=== PATIENT | female | born 1970 | race Caucasian/White ===

== ENCOUNTER → 2018-07-20 21:42 | Outpatient (CLI) | payer OTHER, SELFPAY ==
[2018-07-20 22:14] LABS: Thyroid Stim Hormone (TSH) 2.21 uIU/mL (0.358-3.74)
== END ==
PROVIDERS: Visit Provider Nurse Practitioner
DX: E03.8 Other specified hypothyroidism (principal)
CPT/HCPCS: 84443

== ENCOUNTER → 2020-09-11 21:42 | Outpatient (CLI) | payer OTHER, SELFPAY ==
[2020-09-11 16:19] VITALS: BMI 37.7
[2020-09-11 21:52] LABS: Absolute Lymphocyte Count 1.67 X10^3/uL (0.83-4.51); Absolute Neutrophil Count 5.5 X10^3/uL (2.0-7.7); Basophil# 0.03 X10^3/uL; Basophil% 0.4 % (0-1); Eosinophil# 0.21 X10^3/uL; Eosinophils% 2.6 % (0-5); Hematocrit 41.8 % (37-47); Hemoglobin 14.1 g/dL (12.0-15.0); Lymphocyte # 1.67 X10^3/ul (4.0); Lymphocyte % 20.7 % (19-41); Mean Corp Hgb Conc 33.7 g/dL (32-36); Mean Corpuscular Hgb 30.7 pg (27.0-32.0); Mean Corpuscular Volume 91.1 fL (81-99); Mean Platelet Vol. 11.4 fl (6.2-12.0); Monocyte# 0.63 X10^3/uL; Monocyte% 7.8 % (0-10); NRBC Flagged by Analyzer 0 % (0-5); Neutrophil # 5.51 X10^3/uL (2.7-7.7); Neutrophil % 68.4 % (47-70); Platelet Count 273 K/mm3 (150-450); RBC Distribution Width CV 11.8 % (11.6-14.6); RBC Distribution Width SD 39.2 fl (35.1-43.9); Red Blood Count 4.59 M/mm3 (4.2-5.4); White Blood Count 8.1 K/mm3 (4.4-11.0)
[2020-09-11 22:07] LABS: AST(SGOT) 19 U/L (15-37); Alanine Aminotransfer ALT/SGPT 32 U/L (13-56); Albumin, Serum 3.5 g/dL (3.2-5.0); Alkaline Phosphatase 60 U/L (45-117); Anion Gap 5 (5-15); BUN 11 mg/dL (7-18); BUN/Creat Ratio 13.5 RATIO (10-20); Calcium,Total 9.2 mg/dL (8.5-10.1); Chloride 106 mmol/L (98-107); Cholesterol 205 mg/dL (200); Creatinine, Serum 0.82 mg/dL (0.55-1.02); EST Glomerular Filtration Rate 78 mL/min (>60); Est Glom Filt Rate - Afr Amer 95 mL/min (>60); Globulin 3.4 g/dL (2.2-4.2); Glucose 131 mg/dL (74-106); High Density Lipoprotein 50 mg/dL; Potassium 3.6 mmol/L (3.5-5.1); Protein, Total 6.9 g/dL (6.4-8.2); Sodium Level 138 mmol/L (136-145); Thyroid Stim Hormone (TSH) 1.65 uIU/mL (0.358-3.74); Triglycerides 163 mg/dL; Very Low Density Lipoprotein 33 mg/dL (5-40)
== END ==
PROVIDERS: Referring Provider Nurse Practitioner; Visit Provider Nurse Practitioner
DX: Z00.00 Encounter for general adult medical examination without abnormal findings (principal)
CPT/HCPCS: 80053; 80061; 84443; 85025

== ENCOUNTER → 2020-12-03 09:28 | Outpatient (CLI) | payer OTHER, SELFPAY ==
[2020-09-11 16:19] VITALS: BMI 37.7
--- NOTE | 2020-12-03 09:31 | BI_ITS ---
MAMMOGRAPHY - BILATERAL SCREENING REASON FOR EXAM: Female, 50 years old. Routine annual screening examination. PERTINENT HISTORY: Non-contributory. TECHNIQUE: Digital bilateral breast roman (3D mammographic acquisition) in the CC and MLO projections. 2-D mediolateral oblique (MLO) and craniocaudad (CC) views of both breasts were obtained. CAD: Full Field Digital Mammography with Computer Added Detection was performed. COMPARISON: Comparison is made with prior outside examination dated 07/12/2019. FINDINGS: Breast Composition: There are scattered areas of fibroglandular density. There are no dominant masses or suspicious calcifications. Stable benign-appearing bilateral axillary lymph nodes. No other significant abnormalities are identified. There has been no significant change since the prior study. BI/SCRN MAMM (CAD)W/ROMAN BILAT IMPRESSION: Stable bilateral screening mammogram. Yearly follow-up mammogram recommended. (A) ASSESSMENT CATEGORY: BIRADS Category 2: Benign. A letter regarding these results will be sent to the patient by the facility within 30 days. Approximately 10% of breast cancers are not detected by mammography. A normal mammogram should not delay biopsy of a clinically suspicious abnormality. [id number] Electronically Signed: Vic Ramirez, at 10:28 EST , Service support ,
== END ==
PROVIDERS: PCP Nurse Practitioner; Referring Provider Nurse Practitioner; Visit Provider Nurse Practitioner
DX: Z12.31 Encounter for screening mammogram for malignant neoplasm of breast (principal)
CPT/HCPCS: 77063; 77067

== ENCOUNTER → 2021-10-18 21:39 | Outpatient (CLI) | payer OTHER, SELFPAY ==
[2021-10-18 22:22] LABS: Absolute Lymphocyte Count 2.08 X10^3/uL (0.83-4.51); Absolute Neutrophil Count 5.8 X10^3/uL (2.0-7.7); Basophil# 0.03 X10^3/uL; Basophil% 0.3 % (0-1); Eosinophil# 0.17 X10^3/uL; Eosinophils% 1.9 % (0-5); Hematocrit 41.1 % (37-47); Hemoglobin 14.3 g/dL (12.0-15.0); Lymphocyte # 2.08 X10^3/ul (0.83-4.51); Lymphocyte % 23.8 % (19-41); Mean Corp Hgb Conc 34.8 g/dL (32-36); Mean Corpuscular Hgb 31.6 pg (27.0-32.0); Mean Corpuscular Volume 90.7 fL (81-99); Mean Platelet Vol. 11.5 fl (6.2-12.0); Monocyte# 0.61 X10^3/uL; NRBC Flagged by Analyzer 0 % (0-5); Neutrophil # 5.83 X10^3/uL (2.7-7.7); Neutrophil % 66.8 % (47-70); Platelet Count 315 K/mm3 (150-450); RBC Distribution Width CV 11.9 % (11.6-14.6); RBC Distribution Width SD 39.9 fl (35.1-43.9); Red Blood Count 4.53 M/mm3 (4.2-5.4); White Blood Count 8.7 K/mm3 (4.4-11.0)
[2021-10-18 22:39] LABS: AST(SGOT) 31 U/L (15-37); Alanine Aminotransfer ALT/SGPT 55 U/L (13-56); Albumin, Serum 3.7 g/dL (3.2-5.0); Alkaline Phosphatase 66 U/L (45-117); Anion Gap 7 (5-15); BUN 15 mg/dL (7-18); BUN/Creat Ratio 17.5 RATIO (10-20); Calcium,Total 9.6 mg/dL (8.5-10.1); Chloride 98 mmol/L (98-107); Cholesterol 203 mg/dL (200); Creatinine, Serum 0.86 mg/dL (0.55-1.02); EST Glomerular Filtration Rate 74 mL/min (>60); Est Glom Filt Rate - Afr Amer 89 mL/min (>60); Globulin 3.7 g/dL (2.2-4.2); Glucose 145 mg/dL (74-106); High Density Lipoprotein 34 mg/dL; Potassium 2.9 mmol/L (3.5-5.1); Protein, Total 7.4 g/dL (6.4-8.2); Sodium Level 134 mmol/L (136-145); Thyroid Stim Hormone (TSH) 2.53 uIU/mL (0.358-3.74); Triglycerides 285 mg/dL; Very Low Density Lipoprotein 57 mg/dL (5-40)
== END ==
PROVIDERS: PCP Nurse Practitioner; Visit Provider Nurse Practitioner
DX: I10 Essential (primary) hypertension (principal); E03.9 Hypothyroidism, unspecified
CPT/HCPCS: 80053; 80061; 84443; 85025

== ENCOUNTER 2022-01-10 21:55 | Outpatient (CLI) | payer OTHER, SELFPAY ==
[2022-01-10 22:28] LABS: AST(SGOT) 28 U/L (15-37); Alanine Aminotransfer ALT/SGPT 52 U/L (13-56); Albumin, Serum 3.8 g/dL (3.2-5.0); Alkaline Phosphatase 67 U/L (45-117); Anion Gap 4 (5-15); BUN 13 mg/dL (7-18); BUN/Creat Ratio 14.7 RATIO (10-20); Calcium,Total 9.3 mg/dL (8.5-10.1); Chloride 103 mmol/L (98-107); Creatinine, Serum 0.89 mg/dL (0.55-1.02); EST Glomerular Filtration Rate 71 mL/min (>60); Est Glom Filt Rate - Afr Amer 86 mL/min (>60); Globulin 3.7 g/dL (2.2-4.2); Glucose 107 mg/dL (74-106); Potassium 4.4 mmol/L (3.5-5.1); Protein, Total 7.5 g/dL (6.4-8.2); Sodium Level 135 mmol/L (136-145)
[2022-01-10 22:56] LABS: Hemoglobin A1c 5.6 % (3.8-5.6)
== END 2022-01-10 23:59 | disposition home or self-care (01) ==
PROVIDERS: PCP Nurse Practitioner; Referring Provider Nurse Practitioner; Visit Provider Nurse Practitioner
DX: R73.9 Hyperglycemia, unspecified (principal); E87.6 Hypokalemia
CPT/HCPCS: 80053; 83036

== ENCOUNTER 2022-06-11 15:09 | Emergency (ER) | payer OTHER, SELFPAY ==
[2022-06-11 15:10] VITALS: BP 142/102; PULSE 84; RESP 16; TEMP 36.1; O2SAT 98; BMI 37.5
[2022-06-11 16:13] VITALS: BP 119/86; BP 136/89; BP 146/91; PULSE 78; PULSE 80; PULSE 88
--- NOTE | 2022-06-11 16:13 | CT_ITS ---
EXAM: CT MAXILLOFACIAL WITHOUT INTRAVENOUS CONTRAST CLINICAL INDICATION: pain, vertigo Technologist Notes REPORTS 3 WEEKS POST COVID. CONTINUES TO HAE DIZZINESS AND Tquot;YEASTTquot; ON TONGUE AND SKIN. DONE WITH ANTIBIOTIC. TECHNIQUE: Helically acquired images were obtained of the face without intravenous contrast. This CT exam was performed using one or more of the following dose reduction techniques: automated exposure control, adjustment of the mA and/or kV according to patient size, and/or use of iterative reconstruction technique. This report was created using [employer] report [employer] technology. RADIATION DOSE: CTDIvol = 29.38 mGy, DLP = 606.22 mGy-cm COMPARISON: None. FINDINGS: BONES/JOINTS: Unremarkable. No displaced fracture. No discrete lytic or blastic abnormalities. SOFT TISSUES: Unremarkable. No focal subcutaneous swelling. No discrete fluid collections. ORBITS: Unremarkable. Both globes are unremarkable. Extraocular muscles are normal. Retrobulbar fat appears unremarkable. SINUSES: Unremarkable as visualized. Clear. MASTOID AIR CELLS: Unremarkable as visualized. Clear. DENTAL: No acute findings. No periodontal osseous erosion. CT/Sinus/Facial Bone IMPRESSION: Negative CT facial bones without intravenous contrast. Electronically Signed: Mario Howell MD at 16:48 EDT ,
--- NOTE | 2022-06-11 16:13 | EX.ED.DYSGE1 ---
HPI History of Present Illness Chief Complaint: Dizziness Informant: patient Onset/Context/Timing Onset: Weeks (2) Context: Gradual Onset Timing: Intermittent Quality: swirling in my head Location: head Current Severity: Mild Maximum Severity: Severe Worsened by: certain positions, standing or sitting at times Relieved by: lying down Narrative Narrative: Patient presents with multiple complaints. She states she had COVID about 3 weeks ago, the next week she was still feeling poorly and still tested positive, called her doctor because she was developing right ear and sinus discomfort that she is very vague in describing, she states it may be a little bit there right now I do not know and provides this answer for a lot of my questions about her symptoms, she still has a little bit of a cough but no dyspnea or chest pain or fevers/chills, she is feeling dizzy that she states feels faint but not like she would pass out if he got worse, and oftentimes when she feels this way if she lies down or remains still she ends up feeling better. Sometimes lying in bed she gets the symptoms and when she rolls over into a certain position and feels better and she can rest. She is not having tinnitus or headaches. She denies any acute vision changes when she gets dizzy but states for the last week or 2 generally speaking she has felt like her vision has been globally more blurry than usual. She states she does have some discomfort and trouble walking like she is off balance at times. When she called her PCP about all the symptoms, she was put on antibiotics and steroids for unclear reasons. She states now she has a vaginal yeast infection, red rash that is a little sore but needs her pannus on the left side that seems yeast-like, and she has thrush on her tongue and although this has been the case for the last several days. [facility] Medical History Cysts GERD (gastroesophageal reflux disease) Hypertension Hypothyroidism weight loss 75 # 1 year Home Medications amlodipine 5 mg tablet 5 mg PO DAILY #90 tabs 04/05/22 [Rx Last Taken Unknown] levothyroxine 50 mcg tablet 50 mcg PO DAILY #90 tabs 04/05/22 [Rx Last Taken Unknown] losartan 100 mg tablet 100 mg PO DAILY #90 tabs 04/05/22 [Rx Last Taken Unknown] omeprazole 40 mg capsule,delayed release 40 mg PO DAILY #90 caps 04/05/22 [Rx Last Taken Unknown] fluconazole 100 mg tablet 100 mg PO DAILY #7 tabs 06/11/22 [Rx Last Taken Unknown] meclizine 25 mg tablet 25 mg PO Q8H PRN PRN Dizziness #20 tabs 06/11/22 [Rx Last Taken Unknown] Allergy/AdvReac Type Severity Reaction Status Date / Time No Known Allergies Allergy Verified 06/11/22 15:12 Family History Other Diabetes GERD (gastroesophageal reflux disease) Heart disease High cholesterol Hypertension Kidney disease Liver disease Lung cancer Migraines Seizures Surgical History S/P dilatation and curettage Social History Smoking Status: Never smoker ROS ROS ED Constitutional Constitutional ED: Denies chills or fever(s) Eyes Eyes: Reports blurry vision; Denies diplopia ENT ENT ED: Reports as per HPI, rhinorrhea, sinus pressure and other Details: R ear discomfort at times ; Denies neck pain, sore throat, throat swelling or tinnitus Cardiovascular Cardiovascular: Denies chest pain or palpitations Respiratory/Chest Respiratory/Chest: Reports cough; Denies dyspnea Gastrointestinal Gastrointestinal: Reports diarrhea; Denies abdominal pain, nausea or vomiting Genitourinary Genitourinary ED: Denies dysuria or hematuria Musculoskeletal Musculoskeletal: Denies back pain or neck pain Integumentary Denies abscess or rash Neurologic Neurologic: Reports as per HPI, abnormal gait, disequilibrium and dizziness; Denies headache(s), paresthesias or weakness Psychiatric Psychiatric: Reports anxiety; Denies suicidal thoughts Endocrine Endocrinology: Reports polydipsia and polyuria EXAM Physical Exam Const Vital Signs: 06/11/22 15:10 06/11/22 15:24 06/11/22 16:13 Temperature 96.9 F L Temperature Source Temporal Pulse Rate 84 Pulse Rate [Lying] 78 Pulse Rate [Sitting (for 1 minute prior to obtaining)] 80 Pulse Rate [Standing (for 1 minute prior to obtaining)] 88 Respiratory Rate 16 Respiratory Effort Normal Non-Labored Respiratory Pattern Normal Blood Pressure 142/102 H Blood Pressure [Lying] 119/86 H Blood Pressure [Sitting (for 1 minute prior to obtaining)] 136/89 H Blood Pressure [Standing (for 1 minute prior to obtaining)] 146/91 H Blood Pressure Mean 115 Blood Pressure Mean [Lying] 97 Blood Pressure Mean [Sitting (for 1 minute prior to obtaining)] 104 Blood Pressure Mean [Standing (for 1 minute prior to obtaining)] 109 Pulse Ox 98 Oxygen Delivery Method Room Air Positive well nourished and well developed General Appearance ED: well developed and NAD HEENT Reports TM's clear and moist mucous membranes normocephalic and atraumatic Tympanic Membrane ED: Yes TM's clear Eyes PERRL and EOMs intact bilaterally Eyes Narrative: Horizontal nystagmus to the right, no vertical or rotatory nystagmus. Neck full ROM and supple Resp normal respiratory effort and clear to auscultation bilaterally Cardio regular rate, regular rhythm and no murmurs GI non-tender and non-distended Auscultation: normoactive bowel sounds Palpation: soft Back/Spine no CVA tenderness General Back: other FROM Extremity normal to inspection General Extremety ED: Negative for edema, pulses abnormal or tenderness General Extremity: Negative for edema or pulses abnormal Neuro oriented x3, CN's II-XII intact bilaterally and no sensory deficits noted Sensorium / Orientation: awake and alert Meningeal Signs: no meningeal signs Coordination / Balance: [id number] test normal and [id number] test normal Speech: speech normal Motor Exam: strength 5/5 throughout Skin no rashes or lesions noted and no wounds MDM MDM MDM Narrative Medical decision making narrative: Patient has multiple somatic symptoms and her sinus/ear symptoms are very vague. I performed a CT of the sinuses to see if there is any actual disease there, it was negative and normal. She sounds like she is having vertigo but she is very vague in describing her dizziness, talking about movements, disequilibrium, and feeling faint all at the same time. It is intermittent. Orthostatics were done and they are negative. She is not a known diabetic, however she stated that she was having dry mouth and extreme thirst lately and peeing more than usual, and she does indeed have a glucose of 233 which is random and not fasting. This implies that she may actually be a type II diabetic. I will have her follow-up with her doctor regarding this, she may need some more testing, since her sugars not very high I will defer to PCP for prescriptions regarding this. After meclizine, she does have improvement here more consistent with vertigo. We will also prescribe her Diflucan for the various areas of candidiasis. Since she has it in multiple areas, will cover her for moderate-severe disease with Diflucan 200 mg here today, then 100 mg daily for the next week. Lab Data Attestation: I reviewed the patient's lab results. Labs: Laboratory Results - last 24 hr 06/11/22 06/11/22 16:29 16:29 WBC 12.5 H RBC 5.01 Hgb 16.0 H Hct 46.2 MCV 92.2 MCH 31.9 MCHC 34.6 RDW Std Deviation 40.1 RDW Coeff of Kendy 11.8 Plt Count 220 MPV 10.2 Immature Gran % (Auto) 0.600 Neut % (Auto) 66.5 Lymph % (Auto) 22.9 Ramsey % (Auto) 7.6 Eos % (Auto) 2.2 Baso % (Auto) 0.2 Absolute Neuts (auto) 8.3 H Absolute Lymphs (auto) 2.85 Nucleated RBC % 0 Sodium 134 L Potassium 4.0 Chloride 100 Carbon Dioxide 27.0 Anion Gap 7 BUN 15 Creatinine 0.86 Estim Creat Clear Calc 74.41 Est GFR (MDRD) Af Amer 89 Est GFR (MDRD) Non-Af 74 BUN/Creatinine Ratio 17.5 Glucose 233 H Calcium 8.7 Radiography Diagnostic Testing: Clinical Impression(s) from Imaging Studies Facial/Sinus 06/11/22 16:13 IMPRESSION: Negative CT facial bones without intravenous contrast. Electronically Signed: Mario Howell MD at 16:48 EDT Reading Location ID and State: [facility] / [place] , Service support , Discharge Plan Triage Chief Complaint: Dizziness ED Provider: Jose Houser Dx/Rx/DC Orders Clinical Impression: Peripheral vertigo, Hyperglycemia, Candidiasis of vagina, Tinea corporis, Candidiasis of mouth Instructions: Rachel Infection: Thrush, ED Fungal Skin Infection (Tinea), ED Vertigo, Unspecified, ED Hyperglycemia New Susp Diabetes Prescriptions: New fluconazole 100 mg tablet 100 mg PO DAILY Qty: 7 0RF Rx Instructions: start 06/12 meclizine 25 mg tablet 25 mg PO Q8H PRN PRN (Reason: Dizziness) Qty: 20 0RF No Action amlodipine 5 mg tablet 5 mg PO DAILY Qty: 90 2RF losartan 100 mg tablet 100 mg PO DAILY Qty: 90 2RF omeprazole 40 mg capsule,delayed release(DR/EC) 40 mg PO DAILY Qty: 90 2RF levothyroxine 50 mcg tablet 50 mcg PO DAILY Qty: 90 2RF Primary Care Provider: Eleanor Carnes NP Referrals: Eleanor Carnes NP, [employer]ESS[employer] [Primary Care Provider] - 5-7 Days Disposition Disposition: Home, Self Care
[2022-06-11] MEDS: Meclizine HCl 25 MG Tablet PO (16:21)
[2022-06-11 16:33] LABS: Absolute Lymphocyte Count 2.85 X10^3/uL (0.83-4.51); Absolute Neutrophil Count 8.3 X10^3/uL (2.0-7.7); Basophil# 0.02 X10^3/uL; Basophil% 0.2 % (0-1); Eosinophil# 0.28 X10^3/uL; Eosinophils% 2.2 % (0-5); Hematocrit 46.2 % (37-47); Lymphocyte # 2.85 X10^3/ul (0.83-4.51); Lymphocyte % 22.9 % (19-41); Mean Corp Hgb Conc 34.6 g/dL (32-36); Mean Corpuscular Hgb 31.9 pg (27.0-32.0); Mean Corpuscular Volume 92.2 fL (81-99); Mean Platelet Vol. 10.2 fl (6.2-12.0); Monocyte# 0.94 X10^3/uL; Monocyte% 7.6 % (0-10); NRBC Flagged by Analyzer 0 % (0-5); Neutrophil # 8.28 X10^3/uL (2.7-7.7); Neutrophil % 66.5 % (47-70); Platelet Count 220 K/mm3 (150-450); RBC Distribution Width CV 11.8 % (11.6-14.6); RBC Distribution Width SD 40.1 fl (35.1-43.9); Red Blood Count 5.01 M/mm3 (4.2-5.4); White Blood Count 12.5 K/mm3 (4.4-11.0)
[2022-06-11 16:48] LABS: Anion Gap 7 (5-15); BUN 15 mg/dL (7-18); BUN/Creat Ratio 17.5 RATIO (10-20); Calcium,Total 8.7 mg/dL (8.5-10.1); Chloride 100 mmol/L (98-107); Creatinine, Serum 0.86 mg/dL (0.55-1.02); EST Glomerular Filtration Rate 74 mL/min (>60); Est Glom Filt Rate - Afr Amer 89 mL/min (>60); Estimated Creatinine Clearance 74.41 ml/min; Glucose 233 mg/dL (74-106); Sodium Level 134 mmol/L (136-145)
[2022-06-11 17:18] VITALS: BP 141/89; PULSE 75; RESP 16; O2SAT 97
== END 2022-06-11 17:19 | disposition home or self-care (01) ==
PROVIDERS: Emergency Provider Emergency Medicine; PCP Nurse Practitioner; Visit Provider Emergency Medicine
DX: H81.399 Other peripheral vertigo, unspecified ear (principal); R73.9 Hyperglycemia, unspecified; B37.3 Candidiasis of vulva and vagina; B35.4 Tinea corporis; B37.0 Candidal stomatitis; I10 Essential (primary) hypertension; K21.9 Gastro-esophageal reflux disease without esophagitis; Z79.899 Other long term (current) drug therapy; Z86.16 Personal history of COVID-19
CPT/HCPCS: 70486; 80048; 85025; 99283

== ENCOUNTER 2022-06-26 10:32 | Emergency (ER) | payer OTHER, SELFPAY ==
[2022-06-26 10:33] VITALS: BP 136/116; PULSE 125; RESP 18; TEMP 35.9; O2SAT 100; BMI 35.4
[2022-06-26 10:35] VITALS: BP 136/116; PULSE 125; RESP 18; TEMP 35.9; O2SAT 100
--- NOTE | 2022-06-26 10:46 | EDS_ITS ---
HPI History of Present Illness Chief Complaint: Abscess Detail of Chief Complaint: Abscess on left buttock Informant: patient Narrative Narrative: Patient presents to the emergency department with an abscess to her left buttock that she noticed about 3 days ago. Patient went to urgent care and was referred to the emergency department. Patient does not have history of abscesses. Patient states that she had COVID in May and since that time she has had thrush and yeast infections. Patient had a low-grade temp yesterday up to 100.0 at home. She denies urinary symptoms. She does describe diarrhea this morning with about 4 or 5 episodes of watery stool. She denies any vomiting. Prior similar symptoms: No PFSH PFSH Medical History Cysts GERD (gastroesophageal reflux disease) Hypertension Hypothyroidism weight loss 75 # 1 year Home Medications amlodipine 5 mg tablet 5 mg PO DAILY #90 tabs 04/05/22 [Rx Last Taken Unknown] levothyroxine 50 mcg tablet 50 mcg PO DAILY #90 tabs 04/05/22 [Rx Last Taken Unknown] losartan 100 mg tablet 100 mg PO DAILY #90 tabs 04/05/22 [Rx Last Taken Unknown] omeprazole 40 mg capsule,delayed release 40 mg PO DAILY #90 caps 04/05/22 [Rx Last Taken Unknown] fluconazole 100 mg tablet 100 mg PO DAILY #7 tabs 06/11/22 [Rx Last Taken Unknown] meclizine 25 mg tablet 25 mg PO Q8H PRN PRN Dizziness #20 tabs 06/11/22 [Rx Last Taken Unknown] cephalexin 500 mg capsule 500 mg PO Q6 #40 CAPSULES 06/26/22 [Rx Last Taken Unknown] fluconazole 150 mg tablet (Diflucan) 150 mg PO DAILY #1 TAB 06/26/22 [Rx Last Taken Unknown] sulfamethoxazole 800 mg-trimethoprim 160 mg tablet (Bactrim DS) 1 tab PO BID #20 tabs 06/26/22 [Rx Last Taken Unknown] Allergy/AdvReac Type Severity Reaction Status Date / Time No Known Allergies Allergy Verified 06/26/22 10:35 Family History (Reviewed 10/19/21 @ 11:05 by Eleanor Carnes [employer]UDIES DIRECTOR, [employer] DIRECTOR-C) Other Diabetes GERD (gastroesophageal reflux disease) Heart disease High cholesterol Hypertension Kidney disease Liver disease Lung cancer Migraines Seizures Surgical History S/P dilatation and curettage Social History Smoking Status: Never smoker ROS ROS ED Review of Systems ROS Unobtainable: other Constitutional Constitutional ED: Reports lethargy; Denies chills, fever(s), sweats or weight loss Eyes Eyes: Denies blurry vision, change in vision or diplopia ENT ENT ED: Denies rhinorrhea or sore throat Cardiovascular Cardiovascular: Denies chest pain, orthopnea or racing heartbeat Respiratory/Chest Respiratory/Chest: Reports dyspnea and dyspnea on exertion; Denies cough, orthopnea or sputum Gastrointestinal Gastrointestinal: Reports diarrhea; Denies abdominal pain, nausea or vomiting Genitourinary Genitourinary ED: Denies dysuria, hematuria or urinary frequency Musculoskeletal Musculoskeletal: Denies arthralgias, back pain, myalgias or neck pain Integumentary Reports abscess and other Details: Abscess left buttock ; Denies Abrasions or rash Neurologic Neurologic: Denies headache(s) or weakness Psychiatric Psychiatric: Denies anxiety, depression or suicidal thoughts Endocrine Endocrinology: Denies polydipsia, polyphagia or polyuria Hematologic/Lymphatic Hematologic/Lymphatic: Denies easy bleeding, easy bruising or lymphadenopathy Allergic/Immunologic Allergic/Immunologic ED: Denies mouth swelling, tongue swelling or urticaria EXAM Physical Exam Const Vital Signs: 06/26/22 10:33 06/26/22 10:35 Temperature 96.6 F L 96.6 F L Temperature Source Temporal Temporal Pulse Rate 125 H 125 H Respiratory Rate 18 18 Blood Pressure 136/116 H 136/116 H Blood Pressure Mean 122 Pulse Ox 100 100 Oxygen Delivery Method Room Air Room Air Positive well nourished and well developed General Appearance ED: well developed and NAD HEENT Reports TM's clear and moist mucous membranes normocephalic and atraumatic; Negative for trauma or tenderness Tympanic Membrane ED: Yes TM's clear Eyes PERRL and EOMs intact bilaterally General Eye ED: Negative for pale conjunctiva or scleral icterus Neck no lymphadenopathy, supple and no JVD General: Negative for tenderness Chest Wall inspection of chest normal and palpation of chest normal Chest: Negative for tenderness Resp normal respiratory effort and clear to auscultation bilaterally Effort and Inspection: Negative for respiratory distress or pain with movement Auscultation: Negative for rhonchi, wheezes or diminished lung sounds Cardio regular rate, regular rhythm, S1 normal heart sound, S2 normal heart sound and no murmurs Peripheral Pulses: pulses 2+ throughout GI normal to inspection, nondistended, normoactive bowel sounds, soft to palpation, non-tender, non-distended and no masses Back/Spine no CVA tenderness and no thoracic nor lumbar tenderness Back/Spine Narrative: Examination of the left buttock does reveal a soft tissue swelling/abscess on the medial aspect of the buttock near the rectum however does not seem to involve the perineum or the area of the rectum. Area is cellulitic and slightly tender to palpation. There is a fluctuant section in the central portion of the suspected abscess and slightly excoriated. No drainage noted at this time. Extremity normal to inspection General Extremety ED: Negative for edema General Extremity: Negative for edema Neuro oriented x3, CN's II-XII intact bilaterally, no sensory deficits noted and gait normal Sensorium / Orientation: awake, alert, oriented to person, oriented to place and oriented to time Motor Exam: strength 5/5 throughout and strength abnormal Psych mental status grossly normal Skin no rashes or lesions noted and no wounds MDM MDM MDM Narrative Medical decision making narrative: I had a discussion with patient about incision and drainage which I recommended. Discussed trying to locally anesthetized with 1% lidocaine versus just using an 11 blade and making a small incision and draining the suspected abscess. Patient would prefer just to have the stab incision. At this point patient would prefer to avoid antibiotics given her history of thrush before and yeast infection with antibiotics. I felt this was a reasonable request initially and recommended warm sitz bath's and especially since we were able to I&D the wound. Patient will be given a prescription for Keflex and Bactrim. She is advised that if her symptoms should worsen she can start her Keflex and Bactrim as well as return to the ER if increasing pain, redness, swelling, or condition worsen anyway. Patient also will be given 1 Diflucan should she develop a yeast infection. Procedures Other Procedures Procedure(s): Incision and drainage of left buttock abscess-patient had a stab incision of 2 cm made with an 11 blade after cleaning the skin with Betadine and saline. Moderate amount of purulent foul-smelling debris was expressed. Cavity was irrigated with saline. Clean dressing was applied. Patient Toller procedure well. Discharge Plan Triage Chief Complaint: Abscess ED Provider: Tristin Damon Dx/Rx/DC Orders Clinical Impression: Abscess Instructions: ED Abscess Incision And Drainage Prescriptions: New cephalexin [cephalexin] 500 mg capsule 500 mg PO Q6 Qty: 40 0RF sulfamethoxazole-trimethoprim [Bactrim DS] 800-160 mg tablet 1 tab PO BID Qty: 20 0RF fluconazole [Diflucan] 150 mg tablet 150 mg PO DAILY Qty: 1 0RF No Action fluconazole 100 mg tablet 100 mg PO DAILY Qty: 7 0RF Rx Instructions: start 06/12 meclizine 25 mg tablet 25 mg PO Q8H PRN PRN (Reason: Dizziness) Qty: 20 0RF amlodipine 5 mg tablet 5 mg PO DAILY Qty: 90 2RF losartan 100 mg tablet 100 mg PO DAILY Qty: 90 2RF omeprazole 40 mg capsule,delayed release(DR/EC) 40 mg PO DAILY Qty: 90 2RF levothyroxine 50 mcg tablet 50 mcg PO DAILY Qty: 90 2RF Primary Care Provider: Eleanor Carnes NP Referrals: Eleanor Carnes NP, [employer] DIRECTOR-C [Primary Care Provider] - 3-5 Days Disposition Disposition: Home, Self Care
[2022-06-26 11:15] VITALS: BP 142/96; PULSE 79; RESP 18; O2SAT 94
== END 2022-06-26 11:22 | disposition home or self-care (01) ==
LOC: ED 11:14
PROVIDERS: Emergency Provider Emergency Medicine; PCP Nurse Practitioner; Visit Provider Emergency Medicine
DX: L02.31 Cutaneous abscess of buttock (principal); Z86.16 Personal history of COVID-19
CPT/HCPCS: 10060; 99282

== ENCOUNTER 2022-07-08 14:35 | Emergency (ER) | payer OTHER, SELFPAY ==
[2022-07-08 14:36] VITALS: BP 138/76; PULSE 113; RESP 16; TEMP 37; O2SAT 97; BMI 35.4
[2022-07-08 15:12] VITALS: BP 159/88; PULSE 106; RESP 19; TEMP 37.2; O2SAT 95
--- NOTE | 2022-07-08 15:41 | EX.ED.DYSGE1 ---
HPI History of Present Illness Chief Complaint: Nausea/Vomiting Informant: patient Narrative Narrative: Patient is a 52-year-old female presenting with fevers, generalized malaise, nausea, headaches, myalgias and cough. Her symptoms started 6 days ago. Patient denies any sick contacts. She started having some urinary frequency today or yesterday. She took a COVID test which was negative on Monday. She has had fevers between 100-102 at home. She last had Tylenol this morning. Patient had COVID in May and since then has had complications such as thrush, a buttocks abscess and does not feel that she is ever really returned to normal. No other complaints at this time. [facility] Medical History Cysts GERD (gastroesophageal reflux disease) Hypertension Hypothyroidism weight loss 75 # 1 year Home Medications meclizine 25 mg tablet 25 mg PO Q8H PRN PRN Dizziness #20 tabs 06/11/22 [Rx Last Taken Unknown] amlodipine 5 mg tablet 5 mg PO DAILY #90 tabs 06/29/22 [Rx Last Taken Unknown] levothyroxine 50 mcg tablet 50 mcg PO DAILY #90 tabs 06/29/22 [Rx Last Taken Unknown] losartan 100 mg tablet 100 mg PO DAILY #90 tabs 06/29/22 [Rx Last Taken Unknown] omeprazole 40 mg capsule,delayed release 40 mg PO DAILY #90 caps 06/29/22 [Rx Last Taken Unknown] budesonide 160 mcg-glycopyr 9 mcg-formot 4.8 mcg/actuation HFA inhaler (Breztri Aerosphere) 2 inh inhalation BID 06/30/22 [History Last Taken Unknown] promethazine 12.5 mg tablet 12.5 mg PO TID PRN nausea and vomiting #60 tabs 07/06/22 [Rx Last Taken Unknown] ondansetron 4 mg disintegrating tablet 4 mg PO Q6H PRN nausea and vomiting #20 tabs 07/08/22 [Rx Last Taken Unknown] Allergy/AdvReac Type Severity Reaction Status Date / Time No Known Allergies Allergy Verified 07/08/22 15:16 Family History Other Diabetes GERD (gastroesophageal reflux disease) Heart disease High cholesterol Hypertension Kidney disease Liver disease Lung cancer Migraines Seizures Surgical History S/P dilatation and curettage Social History Smoking Status: Never smoker ROS ROS ED Constitutional Constitutional ED: Reports chills, fever(s) and other Details: Decreased appetite Eyes Eyes: Denies blurry vision or change in vision ENT ENT ED: Denies ear pain or rhinorrhea Cardiovascular Cardiovascular: Denies chest pain or palpitations Respiratory/Chest Respiratory/Chest: Reports cough; Denies dyspnea Gastrointestinal Gastrointestinal: Reports nausea; Denies abdominal pain, diarrhea or vomiting Genitourinary Genitourinary ED: Reports dysuria; Denies hematuria or urinary frequency Musculoskeletal Musculoskeletal: Reports arthralgias and myalgias; Denies back pain or neck pain Integumentary Denies rash Neurologic Neurologic: Reports headache(s) and weakness; Denies paresthesias Psychiatric Psychiatric: Denies anxiety Hematologic/Lymphatic Hematologic/Lymphatic: Denies easy bleeding EXAM Physical Exam Const Vital Signs: 07/08/22 14:36 07/08/22 15:12 07/08/22 17:19 Temperature 98.6 F 98.9 F 97.3 F L Temperature Source Temporal Temporal Temporal Pulse Rate 113 H 106 H 98 Respiratory Rate 16 19 H 16 Blood Pressure 138/76 H 159/88 H 129/77 H Blood Pressure Mean 96 111 94 Pulse Ox 97 95 93 Oxygen Delivery Method Room Air Room Air Room Air 07/08/22 19:15 07/08/22 20:34 Temperature 98.4 F Temperature Source Temporal Pulse Rate 93 86 Respiratory Rate 18 17 Blood Pressure 130/78 H 135/85 H Blood Pressure Mean 95 Pulse Ox 95 98 Oxygen Delivery Method Room Air Positive well nourished and well developed Constitutional Narrative: Patient looks like she does not feel well General Appearance ED: well developed and NAD HEENT Reports TM's clear and dry mucous membranes Tympanic Membrane ED: Yes TM's clear Mouth ED: Yes dry mucous membranes Mouth: dry mucous membranes Eyes PERRL and EOMs intact bilaterally Neck supple Chest Wall inspection of chest normal and palpation of chest normal Resp normal respiratory effort and clear to auscultation bilaterally Resp Narrative: Dry cough on exam Auscultation: Negative for rhonchi or wheezes Cardio regular rate, regular rhythm and no murmurs GI normal to inspection, nondistended, normoactive bowel sounds and non-tender Extremity normal to inspection General Extremety ED: Negative for edema or tenderness General Extremity: Negative for edema Neuro oriented x3 and no sensory deficits noted Motor Exam: strength 5/5 throughout Psych mental status grossly normal Skin no rashes or lesions noted and no wounds MDM MDM MDM Narrative Medical decision making narrative: Patient is evaluated for generalized malaise, nausea as well as flulike symptoms. Patient appears dehydrated but nontoxic in no acute distress. Vital signs are significant for tachycardia. Patient is given IV fluids and Zofran. CBC, CMP, lipase and lactic acid are largely normal. Despite receiving a liter of fluid patient is not able to provide a urine sample. She is given a second liter of fluid. Patient does have some ketones in the urine but no signs of infection. COVID test is negative. Chest x-ray interpreted by myself as well as radiology does not show any acute process. Patient does have a mild lymphopenia is possible she has a viral syndrome that is causing her symptoms. She is counseled on this. She will be discharged home with a prescription for Zofran. On repeat evaluation after receiving IV Zofran and oral ibuprofen she does feel improved and clinically looks better. Is given return precautions. Will follow up with primary care provider. Patient discharged home in improved and stable condition peer Lab Data Attestation: I reviewed the patient's lab results. Labs: Laboratory Results - last 24 hr 07/08/22 07/08/22 07/08/22 15:50 15:50 15:50 WBC 5.7 RBC 4.43 Hgb 13.7 Hct 39.2 MCV 88.5 MCH 30.9 MCHC 34.9 RDW Std Deviation 39.4 RDW Coeff of Kendy 12.1 Plt Count 208 MPV 10.2 Immature Gran % (Auto) 0.700 Neut % (Auto) 77.2 H Lymph % (Auto) 17.6 L Edgar % (Auto) 3.9 Eos % (Auto) 0.2 Baso % (Auto) 0.4 Absolute Neuts (auto) 4.4 Absolute Lymphs (auto) 1.00 Nucleated RBC % 0 Sodium 135 L Potassium 3.6 Chloride 102 Carbon Dioxide 25.0 Anion Gap 8 BUN 10 Creatinine 0.89 Estim Creat Clear Calc 76.40 Est GFR (MDRD) Af Amer 85 Est GFR (MDRD) Non-Af 70 BUN/Creatinine Ratio 11.2 Glucose 164 H Lactic Acid 1.7 Calcium 8.9 Total Bilirubin 0.70 AST 37 ALT 76 H Alkaline Phosphatase 58 Total Protein 6.8 Albumin 3.2 Globulin 3.6 Albumin/Globulin Ratio 0.9 Lipase 301 Urine Color Urine Clarity Urine pH Ur Specific [place] Urine Protein Urine Glucose (UA) Urine Ketones Urine Occult Blood Urine Nitrite Urine Bilirubin Urine Urobilinogen Ur Leukocyte Esterase Urine RBC Urine WBC Ur Squamous Epith Cells Urine Bacteria Urine Mucus 07/08/22 19:12 WBC RBC Hgb Hct MCV MCH MCHC RDW Std Deviation RDW Coeff of Kendy Plt Count MPV Immature Gran % (Auto) Neut % (Auto) Lymph % (Auto) Edgar % (Auto) Eos % (Auto) Baso % (Auto) Absolute Neuts (auto) Absolute Lymphs (auto) Nucleated RBC % Sodium Potassium Chloride Carbon Dioxide Anion Gap BUN Creatinine Estim Creat Clear Calc Est GFR (MDRD) Af Amer Est GFR (MDRD) Non-Af BUN/Creatinine Ratio Glucose Lactic Acid Calcium Total Bilirubin AST ALT Alkaline Phosphatase Total Protein Albumin Globulin Albumin/Globulin Ratio Lipase Urine Color Yellow Urine Clarity Clear Urine pH 6.0 Ur Specific [place] 1.010 Urine Protein 30 H Urine Glucose (UA) Normal Urine Ketones 5 H Urine Occult Blood Negative Urine Nitrite Negative Urine Bilirubin Negative Urine Urobilinogen 1 H Ur Leukocyte Esterase Negative Urine RBC 0 SEEN Urine WBC 0 SEEN Ur Squamous Epith Cells 0-5 SEEN Urine Bacteria 1+ Urine Mucus 0 SEEN Radiography Diagnostic Testing: Clinical Impression(s) from Imaging Studies Chest X-Ray 07/08/22 16:10 IMPRESSION: No acute cardiopulmonary process. Electronically Signed: Christian Proctor MD at 16:27 EDT , Discharge Plan Triage Chief Complaint: Nausea/Vomiting ED Provider: Margarette García Dx/Rx/DC Orders Clinical Impression: Acute dehydration, Viral illness, Nausea Instructions: ED Dehydration (Adult), ED URI, Viral, No Abx (Adult) Prescriptions: New ondansetron 4 mg tablet,disintegrating 4 mg PO Q6H PRN (Reason: nausea and vomiting) Qty: 20 0RF No Action amlodipine 5 mg tablet 5 mg PO DAILY Qty: 90 3RF levothyroxine 50 mcg tablet 50 mcg PO DAILY Qty: 90 3RF losartan 100 mg tablet 100 mg PO DAILY Qty: 90 3RF omeprazole 40 mg capsule,delayed release(DR/EC) 40 mg PO DAILY Qty: 90 3RF Breztri Aerosphere 160-9-4.8 mcg/actuation HFA aerosol inhaler 2 inh inhalation BID meclizine 25 mg tablet 25 mg PO Q8H PRN PRN (Reason: Dizziness) Qty: 20 0RF promethazine 12.5 mg tablet 12.5 mg PO TID PRN (Reason: nausea and vomiting) Qty: 60 3RF Primary Care Provider: Eleanor Carnes NP Referrals: Eleanor Carnes NP, [facility] [facility] [Primary Care Provider] - Disposition Disposition: Home, Self Care Discharge Date/Time: 07/08/22 20:35
[2022-07-08] MEDS: 0.9% Normal Saline 1,000 ML 1000 ML IV (15:45)
[2022-07-08] MEDS: Ibuprofen 600 MG Tablet PO (15:50)
[2022-07-08] MEDS: Ondansetron 4 MG/2 ML Vial IV (15:51)
[2022-07-08 16:02] LABS: Absolute Neutrophil Count 4.4 X10^3/uL (2.0-7.7); Basophil# 0.02 X10^3/uL; Basophil% 0.4 % (0-1); Eosinophil# 0.01 X10^3/uL; Eosinophils% 0.2 % (0-5); Hematocrit 39.2 % (37-47); Hemoglobin 13.7 g/dL (12.0-15.0); Lymphocyte % 17.6 % (19-41); Mean Corp Hgb Conc 34.9 g/dL (32-36); Mean Corpuscular Hgb 30.9 pg (27.0-32.0); Mean Corpuscular Volume 88.5 fL (81-99); Mean Platelet Vol. 10.2 fl (6.2-12.0); Monocyte# 0.22 X10^3/uL; Monocyte% 3.9 % (0-10); NRBC Flagged by Analyzer 0 % (0-5); Neutrophil # 4.39 X10^3/uL (2.7-7.7); Neutrophil % 77.2 % (47-70); Platelet Count 208 K/mm3 (150-450); RBC Distribution Width CV 12.1 % (11.6-14.6); RBC Distribution Width SD 39.4 fl (35.1-43.9); Red Blood Count 4.43 M/mm3 (4.2-5.4); White Blood Count 5.7 K/mm3 (4.4-11.0)
--- NOTE | 2022-07-08 16:10 | RAD_ITS ---
STUDY: X-RAY CHEST REASON FOR EXAM: Female, 52 years old. cough TECHNIQUE: 2 views COMPARISON: None. FINDINGS: Cardiomediastinal silhouette is unremarkable. Costophrenic angles are sharp. Lungs are clear. The trachea is midline. There is no pneumothorax. The bones are grossly intact. RAD/Chest PA and Lateral IMPRESSION: No acute cardiopulmonary process. Electronically Signed: Christian Proctor MD at 16:27 EDT ,
[2022-07-08 16:16] LABS: ALB/GLOB Ratio 0.9 RATIO (0.9-2.4); AST(SGOT) 37 U/L (15-37); Alanine Aminotransfer ALT/SGPT 76 U/L (13-56); Albumin, Serum 3.2 g/dL (3.2-5.0); Alkaline Phosphatase 58 U/L (45-117); Anion Gap 8 (5-15); BUN 10 mg/dL (7-18); BUN/Creat Ratio 11.2 RATIO (10-20); Calcium,Total 8.9 mg/dL (8.5-10.1); Chloride 102 mmol/L (98-107); Creatinine, Serum 0.89 mg/dL (0.55-1.02); EST Glomerular Filtration Rate 70 mL/min (>60); Est Glom Filt Rate - Afr Amer 85 mL/min (>60); Globulin 3.6 g/dL (2.2-4.2); Glucose 164 mg/dL (74-106); Lipase 301 U/L (73-393); Potassium 3.6 mmol/L (3.5-5.1); Protein, Total 6.8 g/dL (6.4-8.2); Sodium Level 135 mmol/L (136-145)
[2022-07-08 16:25] LABS: Lactic Acid 1.7 mmol/L (0.4-1.9)
[2022-07-08 17:19] VITALS: BP 129/77; PULSE 98; RESP 16; TEMP 36.3; O2SAT 93
[2022-07-08] MEDS: 0.9% Normal Saline 1,000 ML 999 ML IV (18:10)
[2022-07-08 19:15] VITALS: BP 130/78; PULSE 93; RESP 18; TEMP 36.9; O2SAT 95
[2022-07-08 19:20] LABS: Mucous, Urine 0 SEEN /hpf (<or=2+); Red Blood Cells-Urine 0 SEEN /hpf (0-5); White Blood Cells 0 SEEN /hpf (0-5)
[2022-07-08 19:24] LABS: Color, Urine Yellow (Yellow); Glucose, Dipstick Normal (Normal); Ketone-Dipstick 5 mg/dl (Negative); Leukocyte Esterase-Dipstick Negative /ul (Negative); Nitrite-Dipstick Negative (Negative); Occult Blood-Urine Negative /ul (Negative); Protein-Dipstick 30 mg/dl (Negative); Urine Bilirubin Dipstick Negative (Negative); Urine Clarity Clear (Clear); Urine Urobilinogen 1 mg/dl (Normal)
[2022-07-08 19:38] LABS: Bacteria 1+ /hpf (None Seen); Squamous Epithelial Cells - UA 0-5 SEEN /hpf (5-10)
[2022-07-08 20:34] VITALS: BP 135/85; PULSE 86; RESP 17; O2SAT 98
== END 2022-07-08 20:35 | disposition home or self-care (01) ==
PROVIDERS: Emergency Provider Emergency Medicine; PCP Nurse Practitioner; Visit Provider Emergency Medicine
DX: E86.0 Dehydration (principal); R11.2 Nausea with vomiting, unspecified; M79.10 Myalgia, unspecified site; I10 Essential (primary) hypertension; R51.9 Headache, unspecified; B34.9 Viral infection, unspecified; Z86.16 Personal history of COVID-19; K21.9 Gastro-esophageal reflux disease without esophagitis
CPT/HCPCS: 71046; 80053; 81001; 83605; 83690; 85025; 87811; 96361; 96374; 99283; J7030; A4216; J2405

== ENCOUNTER → 2023-02-07 | Outpatient (CLI) | payer OTHER, SELFPAY ==
--- NOTE | 2023-02-07 13:55 | BI_ITS ---
MAMMOGRAPHY - BILATERAL SCREENING REASON FOR EXAM: Female, 52 years old. Routine annual screening examination. PERTINENT HISTORY: Non-contributory. TECHNIQUE: Digital bilateral breast roman (3D mammographic acquisition) in the CC and MLO projections. 2-D mediolateral oblique (MLO) and craniocaudad (CC) views of both breasts were obtained. CAD: Full Field Digital Mammography with Computer Added Detection was performed. COMPARISON: Comparison is made with prior study dated December 03, 2020. FINDINGS: Breast Composition: There are scattered areas of fibroglandular density. There are no dominant masses or suspicious calcifications. Stable benign-appearing bilateral axillary lymph nodes. No other significant abnormalities are identified. There has been no significant change since the prior study. BI/SCRN MAMM (CAD)W/ROMAN BILAT IMPRESSION: Stable bilateral screening mammogram. Yearly follow-up mammogram recommended. (A) ASSESSMENT CATEGORY: BIRADS Category 2: Benign. A letter regarding these results will be sent to the patient by the facility within 30 days. Approximately 10% of breast cancers are not detected by mammography. A normal mammogram should not delay biopsy of a clinically suspicious abnormality. [id number] Electronically Signed: Vic Ramirez MD at 15:27 EDT ,
== END | disposition home or self-care (01) ==
LOC: OPBI 13:54
PROVIDERS: PCP Nurse Practitioner; Referring Provider Nurse Practitioner; Visit Provider Nurse Practitioner
DX: Z12.31 Encounter for screening mammogram for malignant neoplasm of breast (principal)
CPT/HCPCS: 77063; 77067

== ENCOUNTER → 2023-08-18 | Outpatient (CLI) | payer OTHER, SELFPAY ==
[2023-08-18 20:48] LABS: Absolute Lymphocyte Count 2.31 X10^3/uL (0.83-4.51); Basophil# 0.03 X10^3/uL; Basophil% 0.4 % (0-1); Eosinophil# 0.21 X10^3/uL; Eosinophils% 2.6 % (0-5); Hematocrit 42.1 % (37-47); Hemoglobin 14.3 g/dL (12.0-15.0); Lymphocyte # 2.31 X10^3/ul (0.83-4.51); Lymphocyte % 28.1 % (19-41); Mean Corpuscular Hgb 31.3 pg (27.0-32.0); Mean Corpuscular Volume 92.1 fL (81-99); Mean Platelet Vol. 11.5 fl (6.2-12.0); Monocyte# 0.69 X10^3/uL; Monocyte% 8.4 % (0-10); NRBC Flagged by Analyzer 0 % (0-5); Neutrophil # 4.96 X10^3/uL (2.7-7.7); Neutrophil % 60.4 % (47-70); Platelet Count 304 K/mm3 (150-450); RBC Distribution Width SD 40.7 fl (35.1-43.9); Red Blood Count 4.57 M/mm3 (4.2-5.4); White Blood Count 8.2 K/mm3 (4.4-11.0)
[2023-08-18 21:11] LABS: ALB/GLOB Ratio 1.2 RATIO (0.9-2.4); AST(SGOT) 25 U/L (15-37); Alanine Aminotransfer ALT/SGPT 50 U/L (13-56); Albumin, Serum 3.9 g/dL (3.2-5.0); Alkaline Phosphatase 66 U/L (45-117); Anion Gap 7 (5-15); BUN 11 mg/dL (7-18); BUN/Creat Ratio 12.8 RATIO (10-20); Calcium,Total 8.9 mg/dL (8.5-10.1); Chloride 106 mmol/L (98-107); Cholesterol 210 mg/dL (200); Creatinine, Serum 0.86 mg/dL (0.55-1.02); EST Glomerular Filtration Rate 73 mL/min (>60); Est Glom Filt Rate - Afr Amer 89 mL/min (>60); Globulin 3.2 g/dL (2.2-4.2); Glucose 179 mg/dL (74-106); High Density Lipoprotein 50 mg/dL; Potassium 3.6 mmol/L (3.5-5.1); Protein, Total 7.1 g/dL (6.4-8.2); Sodium Level 137 mmol/L (136-145); Thyroid Stim Hormone (TSH) 2.16 uIU/mL (0.358-3.74); Triglycerides 147 mg/dL; Very Low Density Lipoprotein 29 mg/dL (5-40)
[2023-08-22 14:09] LABS: Hemoglobin A1c 6.1 % (3.8-5.6)
== END | disposition home or self-care (01) ==
PROVIDERS: PCP Nurse Practitioner
DX: Z00.00 Encounter for general adult medical examination without abnormal findings (principal)
CPT/HCPCS: 80053; 80061; 83036; 84443; 85025

== ENCOUNTER → 2025-08-21 | Outpatient (CLI) | payer OTHER, SELFPAY ==
[2025-08-21 22:31] LABS: Hematocrit 40.9 % (37-47); Hemoglobin 14.6 g/dL (12.0-15.0); Immature Granulocytes Count 0.010 X10^3/uL (0.0-0.0); Mean Corp Hgb Conc 35.7 g/dL (32-36); Mean Corpuscular Volume 87.6 fL (81-99); Mean Platelet Vol. 11.4 fl (6.2-12.0); NRBC Flagged by Analyzer 0 % (0-5); Platelet Count 280 K/mm3 (150-450); RBC Distribution Width CV 12.2 % (11.6-14.6); RBC Distribution Width SD 38.9 fl (35.1-43.9); Red Blood Count 4.67 M/mm3 (4.2-5.4); White Blood Count 7.0 K/mm3 (4.4-11.0)
[2025-08-21 23:33] LABS: AST(SGOT) 21 U/L (<=31); Alanine Aminotransfer ALT/SGPT 19 U/L (<=34); Albumin, Serum 4.6 g/dL (3.5-5.0); Alkaline Phosphatase 69 U/L (35-104); Anion Gap 13 (5-15); BUN 13 mg/dL (4-19); BUN/Creat Ratio 15.6 RATIO (10-20); Calcium,Total 9.9 mg/dL (7.6-11.0); Carbon Dioxide 22.1 mmol/L (21.0-32.0); Chloride 101 mmol/L (98-108); Cholesterol 217 mg/dL (<=200); Globulin 2.8 g/dL (2.2-4.2); Glucose 87 mg/dL (70-99); Low Density Lipoprotein Calc. 141 mg/dL; Potassium 4.1 mmol/L (3.3-5.1); Triglycerides 121 mg/dL; Very Low Density Lipoprotein 24 mg/dL (5-40); cholesterol:hdl ratio screen 4.22
== END | disposition home or self-care (01) ==
PROVIDERS: PCP Nurse Practitioner; Referring Provider Nurse Practitioner; Visit Provider Nurse Practitioner
DX: E11.65 Type 2 diabetes mellitus with hyperglycemia (principal); I10 Essential (primary) hypertension; K21.9 Gastro-esophageal reflux disease without esophagitis; E87.6 Hypokalemia; E03.9 Hypothyroidism, unspecified
CPT/HCPCS: 80053; 80061; 83036; 84443; 85025